=== PATIENT | female | born 1965 | race Asian ===

== ENCOUNTER 2016-05-09 22:08 | Emergency (ER) | payer BC ==
[~2016-05-09] VITALS: Ht 139.7 cm; Wt 55.7 kg
[2016-05-09] MEDS ORDERED: PHENERGAN-CODE120 ML PO (23:39)
[2016-05-09 23:56] VITALS: BP 152/66
== END 2016-05-10 00:02 | disposition home or self-care (01) ==
LOC: EME 22:08
DX: J20.9 Acute bronchitis, unspecified (principal); Z88.8 Allergy status to other drugs, medicaments and biological substances
CPT/HCPCS: 71020; 99281; 99284